=== PATIENT | female | born 1985 | race Caucasian/White ===

== ENCOUNTER 2019-12-26 16:58 | Outpatient (CLI) | payer BC, SELFPAY ==
--- NOTE | ~2019-12-26 | XR_ITS ---
EXAMINATION: XR chest 2V EXAM DATE: 12/26/2019 17:09 INDICATION: Left-sided upper chest pain, left arm pain. TECHNIQUE: Frontal and lateral projections of the chest obtained and reviewed. Comparison is made to prior examination from 10/07/2018. FINDINGS: The lungs are clear. There are no pleural effusions. The cardiomediastinal silhouette is within normal limits. There is no pneumothorax suspected. The bones and soft tissues are unremarkab le. There are cholecystectomy clips. IMPRESSION: No acute cardiopulmonary findings. Reviewed, dictated and finalized at location A. 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
== END 2019-12-26 16:59 ==
PROVIDERS: PCP Family Medicine; Visit Provider Family Medicine
DX: R07.9 Chest pain, unspecified (principal); M79.602 Pain in left arm
CPT/HCPCS: 71046

== ENCOUNTER 2022-02-22 11:00 | Outpatient (CLI) | payer BC, SELFPAY ==
--- NOTE | ~2022-02-22 | US_ITS ---
EXAMINATION: US pelvic complete DATE: 02/22/2022 11:15 INDICATION: R10.2 - Pelvic and perineal pain TECHNIQUE: Multiple transabdominal sonographic images of the pelvis were obtained. COMPARISON: CT abdomen pelvis 11/08/2019. FINDINGS: Uterus: 9.3 x 5.1 x 5.6 cm. Endometrial complex measures 1.2 cm. Right Ovary: 4.7 x 4.5 x 4.1 cm. Vascular flow is present. 3.7 x 3.2 x 3.1 cm simple right ovarian cy st, requires no additional follow-up. Left Ovary: 3.5 x 1.6 x 3.5 cm. Vascular flow is present. There is no free fluid in the pelvis. IMPRESSION: 1. Normal transabdominal pelvic sonogram findings. Reviewed, dictated and finalized at location K.
== END 2022-02-22 11:01 ==
PROVIDERS: PCP Family Medicine; Visit Provider Family Medicine
DX: N83.291 Other ovarian cyst, right side (principal); R10.2 Pelvic and perineal pain
CPT/HCPCS: 76856

== ENCOUNTER 2023-01-16 09:47 | Outpatient (CLI) | payer BC, SELFPAY ==
--- NOTE | ~2023-01-16 | MR_ITS ---
MRI of the brain Clinical History: Headache Technique: Axial and sagittal T1-weighted images were acquired. These were followed by axial T2-weigh patrick, diffusion weighted, gradient, and FLAIR images. Findings: No abnormal signal seen in the brain parenchyma. No acute infarct, intracranial hemorrhage, or mass lesion. Ventricles and subarachnoid spaces are unremarkable. Orbits are unremarkable. There is mild right max illary and right ethmoid sinus disease. Remaining paranasal sinuses and mastoid air cells are clear. Major intracranial flow voids are intact. Sagittal midline structures are intact. IMPRESSION: No intracranial abnormality. Mild sinus disease, as above. Reviewed, dictated and finalized at [facility]. ROOM CASHIER
== END 2023-01-16 09:48 ==
LOC: GOSHIMG 09:48
PROVIDERS: PCP Family Medicine; Visit Provider Family Medicine
DX: R51.9 Headache, unspecified (principal); J32.9 Chronic sinusitis, unspecified
CPT/HCPCS: 70551

== ENCOUNTER 2024-12-16 08:05 | Outpatient (CLI) | payer OTHER, SELFPAY ==
--- NOTE | ~2024-12-16 | XR_ITS ---
EXAMINATION: XR chest 2V DATE: 12/16/2024 08:17 INDICATION: Chest pain, unspecified. TECHNIQUE: Frontal and lateral views of the chest were obtained. COMPARISON: Chest 2 views 12/26/2019 FINDINGS: There is no pneumonia, pleural effusion, or pneumothorax. The heart size is normal. IMPRESSION: 1. No acute cardiopulmonary disease. Reviewed, dictated and finalized at location A. ER OF CREDIT CLERK
== END 2024-12-16 08:06 | disposition home or self-care (01) ==
PROVIDERS: PCP Family Medicine; Visit Provider Physician Assistant Medical
DX: R07.9 Chest pain, unspecified (principal); R06.02 Shortness of breath; Z87.891 Personal history of nicotine dependence
CPT/HCPCS: 71046